=== PATIENT | male | born 1960 | race Caucasian/White ===

== ENCOUNTER 2019-03-15 19:35 | Emergency (ER) | payer OTHER, BC ==
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
[2019-03-15] MEDS ORDERED: TYLENOL PO ONE (22:00)
[2019-03-15] MEDS ORDERED: IBUPROFEN PO ONE (22:00)
[2019-03-15] MEDS ORDERED: FLEXERIL PO ONE (22:02)
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
[2019-03-15 23:45] VITALS: BP 119/80
== END 2019-03-15 23:43 | disposition home or self-care (01) ==
LOC: ED 19:35
DX: M62.830 Muscle spasm of back (principal); M62.838 Other muscle spasm; V89.2XXA Person injured in unspecified motor-vehicle accident, traffic, initial encounter; Y93.89 Activity, other specified; Y92.89 Other specified places as the place of occurrence of the external cause; Y99.8 Other external cause status
CPT/HCPCS: 72040; 72080; 72100